=== PATIENT | female | born 1990 | race African-American/Black ===

== ENCOUNTER 2018-08-28 13:33 | Emergency (ER) | payer OTHER ==
[~2018-08-28] VITALS: Ht 175.3 cm; Wt 54.0 kg
[2018-08-28 17:27] LABS: CHLORIDE 107 mEq/L (98-107)
[2018-08-28 17:28] LABS: BASOPHILS % 0.6 % (0.0-2.0); EOSINOPHILS % 1.2 % (0.0-5.0); HEMATOCRIT. 35.7 % (36.0-48.0); HEMOGLOBIN. 12.2 g/dL (12.0-16.0); LYMPHOCYTES % 18.6 % (20.0-50.0); MEAN CORPUSCULAR VOLUME 90.7 fL (81.0-99.0); MEAN PLATELET VOLUME 8.2 fl (7.4-10.4); NEUTROPHILS % 71.6 % (40.0-76.0); PLATELET 268 x1000/uL (130-400); RED BLOOD CELL COUNT 3.94 mill/uL (4.2-5.4); RED CELL DISTRIBUTION WIDTH 13.4 % (11.6-14.6)
[2018-08-28 17:52] LABS: B-HCG QUANTITATIVE 30327 mIU/mL (<3)
[2018-08-28 20:00] VITALS: BP 110/69
== END 2018-08-28 20:11 | disposition home or self-care (01) ==
LOC: ER 13:44
DX: O20.0 Threatened abortion (principal); D72.829 Elevated white blood cell count, unspecified; E88.09 Other disorders of plasma-protein metabolism, not elsewhere classified; Z3A.16 16 weeks gestation of pregnancy; R74.8 Abnormal levels of other serum enzymes
CPT/HCPCS: 36415; 76805; 81025; 84702; 86850; 86900; 99284